=== PATIENT | female | born 1975 | race African-American/Black ===

== ENCOUNTER 2018-02-26 14:07 | Emergency (ER) | payer MEDICAID ==
[~2018-02-26] VITALS: Ht 162.6 cm; Wt 98.9 kg
[~2018-02-26 14:07] MED LIST: ALBUTEROL SULF8.5 GM INH; IBUPROFEN600 MG ORAL; NKM; PREDNISONE20 MG ORAL; PROMETHAZINE-C118 M1 ORAL; PSEUDOEPHEDRINE30 MG PO; TYLENOL EXTRA500 MG ORAL
[2018-02-26] MEDS ORDERED: NKM (14:22)
[2018-02-26] MEDS ORDERED: Sodium Chloride 500ML 500 ML IV ONE (14:36)
[2018-02-26] MEDS ORDERED: LORazepam 1mg tab ORAL ONE (14:45)
[2018-02-26 15:13] LABS: BASOPHILS % (AUTO) 0.7 % (0.0-2.0); EOSINOPHILS % (AUTO) 0.3 % (0.0-3.0); HEMATOCRIT 41.7 % (37.0-47.0); LYMPHOCYTES % (AUTO) 17.8 % (20.0-45.0); MEAN CORPUSCULAR VOLUME 81 FL (80-99); MONOCYTES % (AUTO) 6.7 % (1.0-10.0); NEUTROPHILS % (AUTO) 74.4 % (45.0-75.0); PLATELET COUNT 420 K/UL (150-450); RED BLOOD COUNT 5.18 M/UL (4.20-5.40); RED CELL DISTRIBUTION WIDTH 13.5 % (11.6-14.8); WHITE BLOOD COUNT 11.3 K/UL (4.8-10.8)
[2018-02-26 15:22] LABS: ANION GAP 12 mmol/L (5-15); BLOOD UREA NITROGEN 7 mg/dL (7-18); CALCIUM 10.7 MG/DL (8.5-10.1); CARBON DIOXIDE 24 MMOL/L (21-32); CHLORIDE 103 MMOL/L (98-107); CREATININE 0.7 MG/DL (0.55-1.30); POTASSIUM 3.4 MMOL/L (3.5-5.1); SODIUM 138 MMOL/L (136-145)
--- NOTE | 2018-02-26 15:24 | Emergency Room Report ---
History of Present Illness General Chief Complaint: Behavioral Complaint Source: Patient Present Illness HPI patient is a 42-year-old female with history of anxiety here complaining of 4 days of nausea and abdominal pain. Patient mentions that 4 days ago she found out that her cheated on her and she has been having anxiety attacks every day not being able to sleep more than 2 hours and having no appetite. He has debris bouts of vomiting and acid reflux. No diarrhea no constipation no fever or chills. Patient only admits to drinking wine after she found out about her has been cheating on her.patient denies SI, HI, changes in mood. Patient has previously been on Zoloft for anxiety management has not taken Zoloft for over one year. Denies taking any Xanax or any other benzodiazepines for her anxiety management in the past week. Denies taking any medication for nausea or for pain. Patient appears tearful and distressed as she is uncomfortable talking about the recent incident. Reports minimal lightheadedness, headache and nausea. Allergies: Coded Allergies: No Known Allergies (Unverified , 11/28/15) Patient History Past Medical History: see triage record Past Surgical History: none Now: No Immunizations: UTD Reviewed Nursing Documentation: PMH: Agreed; PSxH: Agreed Nursing Documentation-PMH Past Medical History: No History, Except For History Of Psychiatric Problem: Yes - anxiety Review of Systems All Other Systems: negative except mentioned in HPI Physical Exam Vital Signs Date Time Temp Pulse Resp B/P (MAP) Pulse Ox O2 Delivery O2 Flow Rate FiO2 02/26/18 14:15 98.2 102 19 120/71 98 Room Air Sp02 EP Interpretation: reviewed, normal General Appearance: normal inspection, well appearing, no apparent distress, alert, GCS 15 Head: normocephalic, atraumatic Eyes: bilateral eye normal inspection, bilateral eye PERRL ENT: normal ENT inspection, hearing grossly normal, normal pharynx Neck: normal inspection, full range of motion, supple Respiratory: normal inspection, chest non-tender, lungs clear, no rhonchi, no wheezing Cardiovascular #1: normal inspection, normal peripheral pulses, regular rate, rhythm, no edema, no murmur Gastrointestinal: normal inspection, non tender, soft Rectal: deferred Genitourinary: deferred Musculoskeletal: normal inspection, back normal Neurologic: normal inspection, alert, oriented x3, responsive Psychiatric: judgement/insight normal, memory normal, no suicidal/homicidal ideation, no delusions, anxious - patient appears tearful Suicide Risk Assessment: Suicidal Ideation: No Had intent to initiate attempt: No Pt's plan for suicide attempt: No Has means to complete attempt: No Skin: normal inspection, normal color, no rash Lymphatic: normal inspection, no adenopathy, axilla node tender (R) Medical Decision Making PA Attestation all diagnostic to treatment plans were reviewed and discussed with my supervising physician Dr. Brothers Diagnostic Impression: Primary Impression: Anxiety with limited-symptom attacks Additional Impression: Nausea & vomiting ER Course patient is a 42-year-old female with history of anxiety here complaining of 4 days of nausea and abdominal pain. Patient mentions that 4 days ago she found out that her cheated on her and she has been having anxiety attacks every day not being able to sleep more than 2 hours and having no appetite. He has debris bouts of vomiting and acid reflux. No diarrhea no constipation no fever or chills. Patient only admits to drinking wine after she found out about her has been cheating on her.patient denies SI, HI, changes in mood. Patient has previously been on Zoloft for anxiety management has not taken Zoloft for over one year. Denies taking any Xanax or any other benzodiazepines for her anxiety management in the past week. Denies taking any medication for nausea or for pain. Patient appears tearful and distressed as she is uncomfortable talking about the recent incident. Reports minimal lightheadedness, headache and nausea. Ddx considered but are not limited to Anxiety attack, heart attack,alcohol ingestion Vital signs: are WNL, pt. is afebrile H&PE are most consistent with anxiety attack ORDERS: Ativan 1 mg, IV access, CBC, CMP, UA, urine test, urine drug screen, blood alcohol level, xanax 0.5mg prn #5 avoid alcohol when taking xanax , zofran 4mg, omeprazole 20mg ED INTERVENTIONS: IV fluids and Ativan 1 g DISCHARGE: At this time pt. is stable for d/c to home. Will provide printed patient care instructions, and any necessary prescriptions. Care plan and follow up instructions have been discussed with the patient prior to discharge. urine drug screen was positive for marijuana patient is advised not to smoke any marijuana especially when an anxious and taking Xanax potassium 3.4, drug screen positive for marijuana EKG Diagnostic Results EP Interpretation: NSR, possible septal infarct Rate: normal Rhythm: NSR ST Segments: no acute changes ASA given to the pt in ED: Lisette BOATENG Scribe Text NSR, possible septal infarct Last Vital Signs Date Time Temp Pulse Resp B/P (MAP) Pulse Ox O2 Delivery O2 Flow Rate FiO2 02/26/18 14:32 98 19 Room Air 02/26/18 14:15 98.2 120/71 98 Disposition: HOME, SELF-CARE Condition: Stable Scripts Alprazolam* (XANAX*) 0.5 Mg Tablet 0.5 MG ORAL DAILY for 5 Days, #5 TAB Prov: Beto Solitario 02/26/18 Ondansetron* (ZOFRAN*) 4 Mg Tablet 4 MG ORAL Q6H PRN for Nausea & Vomiting, #20 TAB Prov: Beto Solitario 02/26/18 Omeprazole (OMEPRAZOLE) 20 Mg Capsule.dr 20 MG ORAL DAILY, #30 CAP Prov: Beto Solitario 02/26/18 Patient Instructions: Generalized Anxiety Disorder, Self-Destructive Behavior Additional Instructions: mental health hotline number provided, follow-up with primary care physician and also psychiatrist daily management of anxiety. If Thoughts of hurting herself has return to the ER or call mental health hotline number. Beto Solitario Feb 26, 2018 15:24
[2018-02-26 15:27] LABS: ALANINE AMINOTRANSFERASE 18 U/L (12-78); ALBUMIN 4.2 G/DL (3.4-5.0); ALKALINE PHOSPHATASE 91 U/L (46-116); ASPARTATE AMINO TRANSFERASE 23 U/L (15-37); BILIRUBIN,TOTAL 0.8 MG/DL (0.2-1.0)
[2018-02-26] MEDS ORDERED: ZOFRAN ODT8 MG ORAL (16:18)
[2018-02-26] MEDS ORDERED: OMEPRAZOLE20 M2 ORAL (16:18)
[2018-02-26] MEDS ORDERED: ZOFRAN4 M3 ORAL (16:48)
[2018-02-26] MEDS ORDERED: XANAX0.5 MG ORAL (16:57)
[2018-02-26 17:10] VITALS: BP 119/66
== END 2018-02-26 17:10 | disposition home or self-care (01) ==
LOC: EMR 14:34
DX: F41.9 Anxiety disorder, unspecified (principal); R11.2 Nausea with vomiting, unspecified
CPT/HCPCS: 36415; 80053; 80307; 80329; 81025; 85025; 93005; 96374; 99284; J2405

== ENCOUNTER 2019-06-12 10:37 | Emergency (ER) | payer MEDICAID ==
[~2019-06-12] VITALS: Ht 165.1 cm; Wt 77.1 kg
[~2019-06-12 10:37] MED LIST changes: +OMEPRAZOLE20 M2 ORAL; +XANAX0.5 MG ORAL; +ZOFRAN ODT8 MG ORAL; +ZOFRAN4 M3 ORAL
[2019-06-12 10:55] VITALS: BP 120/72
--- NOTE | 2019-06-12 10:55 | NUR ---
ED Nurse Note: PT walked in to ED for C/O heartburn since last night. PT also reports having intermittent abdomina pain especially when she eats and drinks. denies any N/V/D
--- NOTE | 2019-06-12 11:24 | Emergency Room Report ---
History of Present Illness General Chief Complaint: Abdominal Pain Source: Patient Present Illness HPI 44-year-old female presents with epigastric abdominal pain. Present for the past 48 hours. Describes nausea but no vomiting. Pain intermittent about 8 out of 10 worse with eating. No fevers no diarrhea no urinary complaints. Patient took omeprazole last night with some relief. Allergies: Coded Allergies: No Known Allergies (Unverified , 11/28/15) Patient History Reviewed Nursing Documentation: PMH: Agreed; PSxH: Agreed Nursing Documentation-PMH Past Medical History: No Stated History Review of Systems All Other Systems: negative except mentioned in HPI Physical Exam Vital Signs Date Time Temp Pulse Resp B/P (MAP) Pulse Ox O2 Delivery O2 Flow Rate FiO2 06/12/19 10:50 98.4 96 19 114/78 (90) 96 Room Air Sp02 EP Interpretation: reviewed, normal General Appearance: well appearing, no apparent distress Head: normocephalic, atraumatic Eyes: bilateral eye PERRL, bilateral eye EOMI ENT: hearing grossly normal, moist mucus membranes Neck: full range of motion, supple Respiratory: lungs clear, normal breath sounds, no rhonchi, no respiratory distress, no retraction, no wheezing Cardiovascular #1: normal peripheral pulses, regular rate, rhythm, no murmur Gastrointestinal: soft, non-distended, no guarding, tenderness - Epigastric and mild right upper quadrant tenderness Neurologic: alert, oriented x3, no focal defects Skin: normal color, warm/dry Medical Decision Making Diagnostic Impression: Primary Impression: Epigastric abdominal pain ER Course Patient presented for epigastric abdominal pain. Symptoms present for the past 2 days. No active vomiting. Abdomen mildly tender but otherwise nondistended. Differential included gastritis, acid reflux, pancreatitis, biliary colic to name a few. On exam vital signs stable. Laboratory studies were unremarkable. Urinalysis normal. negative. Do suspect gastritis versus GERD at this time. Will start patient on antacid. Patient does have follow-up with her primary care doctor this week. Stable for discharge CT/MRI/US Diagnostic Results CT/MRI/US Diagnostic Results : Impression Ultrasound abdomen No acute disease Last Vital Signs Date Time Temp Pulse Resp B/P (MAP) Pulse Ox O2 Delivery O2 Flow Rate FiO2 06/12/19 10:55 98.4 92 19 120/72 97 Room Air Disposition: HOME, SELF-CARE Condition: Stable Scripts Ondansetron* (ZOFRAN*) 4 Mg Tablet 4 MG ORAL Q6H PRN for Nausea & Vomiting for 7 Days, #20 TAB Prov: Rocky Jaquez M.D. 06/12/19 Famotidine* (Pepcid 20mg tablet*) 20 Mg Tablet 20 MG ORAL TWICE A DAY for 7 Days, #20 TAB 0 Refills Prov: Rocky Jaquez M.D. 06/12/19 Additional Instructions: Patient is instructed to follow-up with her primary care doctor, primary care clinic or formerly [facility] in 1 to 2 days. Patient instructed to return for any worsening symptoms or concerns. Please note that the documentation in this note was used with [employer] dictation technology. Pleae be advised that this may lead to erroneous text due to misinterpretation by the dictation software Rocky Jaquez M.D. Jun 12, 2019 11:24
[2019-06-12] MEDS ORDERED: Lidocaine 2% Visc 15ml soln ORAL ONE (11:30)
[2019-06-12] MEDS ORDERED: Mylanta II UD 30ml ORAL ONE (11:30)
--- NOTE | 2019-06-12 11:36 | NUR ---
ED Nurse Note: edenilson wraped right ankle
--- NOTE | 2019-06-12 11:36 | NUR ---
Sharon valadez in EDM - 06/12/19 at 1136 by MAUDE ED Nurse Note: edenilson wraped right ankle
--- NOTE | 2019-06-12 11:36 | NUR ---
ED Nurse Note: Blood and urine sent down to lab. Ultrasound being done at [facility].
[2019-06-12 12:02] LABS: APPEARANCE,URINE CLEAR; BILIRUBIN, URINE NEGATIVE (NEGATIVE); COLOR,URINE PALE YELLOW; GLUCOSE, URINE (UA) NEGATIVE (NEGATIVE); KETONES,URINE NEGATIVE (NEGATIVE); LEUKOCYTE ESTERASE ,URINE NEGATIVE (NEGATIVE); NITRITE,URINE NEGATIVE (NEGATIVE); PH,URINE 7 (4.5-8.0); PROTEIN,URINE NEGATIVE (NEGATIVE); UROBILINOGEN,URINE NORMAL MG/DL (0.0-1.0)
[2019-06-12 12:07] LABS: BASOPHILS % (AUTO) 0.5 % (0.0-2.0); EOSINOPHILS % (AUTO) 0.9 % (0.0-3.0); HEMATOCRIT 37.3 % (37.0-47.0); HEMOGLOBIN 11.8 G/DL (12.0-16.0); LYMPHOCYTES % (AUTO) 17.1 % (20.0-45.0); MEAN CORPUSCULAR VOLUME 76 FL (80-99); MONOCYTES % (AUTO) 5.5 % (1.0-10.0); PLATELET COUNT 410 K/UL (150-450); RED CELL DISTRIBUTION WIDTH 15.8 % (11.6-14.8); WHITE BLOOD COUNT 14.1 K/UL (4.8-10.8)
[2019-06-12 12:28] LABS: ANION GAP 10 mmol/L (5-15); BLOOD UREA NITROGEN 10 mg/dL (7-18); CALCIUM 10.3 MG/DL (8.5-10.1); CARBON DIOXIDE 27 MMOL/L (21-32); CHLORIDE 103 MMOL/L (98-107); CREATININE 0.6 MG/DL (0.55-1.30); POTASSIUM 3.9 MMOL/L (3.5-5.1); SODIUM 140 MMOL/L (136-145)
[2019-06-12 12:31] LABS: ALANINE AMINOTRANSFERASE 21 U/L (12-78); ALBUMIN 3.8 G/DL (3.4-5.0); ALBUMIN/GLOBULIN RATIO 0.9 (1.0-2.7); ALKALINE PHOSPHATASE 84 U/L (46-116); ASPARTATE AMINO TRANSFERASE 13 U/L (15-37); BILIRUBIN,TOTAL 0.5 MG/DL (0.2-1.0)
--- NOTE | 2019-06-12 12:50 | Diagnostic Imaging Report ---
Indication: Abdominal pain, right upper quadrant pain, nausea, vomiting Technique: Hays-scale and duplex images of the upper abdomen were obtained Comparison: none Findings: Gallbladder is unremarkable, without stones, wall thickening, nor pericholecystic fluid. Sonographic Gonzalez's sign is negative. Common bile duct measures for mm in diameter. No intrahepatic biliary ductal dilatation. Liver demonstrates normal echogenicity, no focal abnormality. Portal vein and hepatic veins are patent. Pancreas is unremarkable. Spleen is unremarkable. Left kidney measures 12 cm in length. Right kidney measures 10 cm length. Both kidneys demonstrate normal echogenicity. There is no hydronephrosis. No focal abnormality . Non-aneurysmal abdominal aorta . Impression: Negative
[2019-06-12] MEDS ORDERED: FAMOTIDINE20 MG ORAL (13:02)
[2019-06-12] MEDS ORDERED: ZOFRAN4 M3 ORAL (13:02)
[2019-06-12 13:11] VITALS: BP 128/70
--- NOTE | 2019-06-12 13:11 | NUR ---
ER DISCHARGE NOTE: Patient is cleared to be discharged per ERMD, pt is aox4, on room air, with stable vital signs. pt was given dc and prescription instructions, pt was able to verbalize understanding, pt id band removed without complications. pt is able to ambulate with steady gait. pt took all belongings.
== END 2019-06-12 13:11 | disposition home or self-care (01) ==
LOC: EMR 13:08
DX: R10.13 Epigastric pain (principal)
CPT/HCPCS: 36415; 76700; 80053; 81003; 81025; 83690; 85025; Z7502; 99284

== ENCOUNTER 2020-01-20 16:46 | Emergency (ER) | payer MEDICAID ==
[~2020-01-20] VITALS: Ht 165.1 cm; Wt 99.8 kg
[~2020-01-20 16:46] MED LIST changes: +FAMOTIDINE20 MG ORAL
--- NOTE | 2020-01-20 17:09 | NUR ---
ED Nurse Note: Pt walked into ED for R ear pain 5/10 for 1 week. No ear drainage. Pt is alert and orientedx4, ambulatory. Pt has been seen by [facility].
[2020-01-20 17:11] VITALS: BP 117/82
[2020-01-20] MEDS ORDERED: Ketorolac 30mg Inj IM ONE (17:45)
--- NOTE | 2020-01-20 17:55 | Emergency Room Report ---
History of Present Illness General Chief Complaint: Earache Source: Patient Present Illness HPI 44 YO Female presents to the ED c/o 02/08 right ear pain that has gotten worse over the course of the week. Pt. reports that it is now causing her a headache that did not have a sudden onset. Pt. reports being uncomfortable to sleep on that side, and she has spasm of the right neck muscle that has resulted. She re ports temporary relief of her neck pain with massage. Pt. denies fevers or chills. She reports taking Excedrin which only helped temporarily and was alleviating mainly her KING. Pt. denies trauma to the Ear. She denies external ear tenderness. Pt. reports keeping the ear covered with her hand helps to alleviate her ear pain slightly. She denies sore throat. She denies sensitivity to the light. She denies d/c from the ear. She recalls that the few days prior to onset she was having issues with her allergies that did resolve. She denies loss of hearing, decreased hearing, or ringing of the ears. She denies visual symptoms. Allergies: Coded Allergies: No Known Allergies (Unverified , 11/28/15) COVID-19 Screening Contact w/high risk pt: No Experienced COVID-19 symptoms?: No COVID-19 Testing performed RADIOLOGIST CHIEF OF BREAST IMAGING: No Patient History Past Medical History: see triage record Past Surgical History: none Pertinent Family History: none Last Menstrual Period: 01/14/20 Now: No Reviewed Nursing Documentation: PMH: Agreed; PSxH: Agreed Nursing Documentation-PMH Past Medical History: No History, Except For Review of Systems All Other Systems: negative except mentioned in HPI Physical Exam Vital Signs Date Time Temp Pulse Resp B/P (MAP) Pulse Ox O2 Delivery O2 Flow Rate FiO2 01/20/20 16:55 98.1 90 18 116/79 (91) 96 Room Air Sp02 EP Interpretation: reviewed, normal General Appearance: no apparent distress, alert, GCS 15, non-toxic Head: normocephalic, atraumatic Eyes: bilateral eye normal inspection, bilateral eye PERRL, bilateral eye other - no photophobia ENT: hearing grossly normal, normal pharynx, normal voice, uvula midline, moist mucus membranes, other - The right TM is bulging with slight erythema, the canal is moderately erythematous with some scratches on the posterior aspect. The canal is without discharge/exudate, or swelling. NO external ear tenderness, no pain over the mastiod process. No palpable preauricular LAD. Neck: full range of motion, no meningismus, no bony tend, tender lateral - Right lateral TTP to the muscle. no midline ttp. FROM of the neck. Respiratory: chest non-tender, lungs clear, normal breath sounds, speaking full sentences Cardiovascular #1: regular rate, rhythm, no edema Musculoskeletal: normal range of motion, gait/station normal, non-tender Neurologic: alert, motor strength/tone normal, oriented x3, sensory intact, responsive, speech normal, grossly normal, no Babinski Psychiatric: judgement/insight normal Skin: no rash, normal color Lymphatic: no adenopathy Medical Decision Making PA Attestation Dr. Villasenor Is my supervising Physician whom patient management has been discussed with. Diagnostic Impression: Primary Impression: Otitis media Qualified Codes: H65.191 - Other acute nonsuppurative otitis media, right ear Additional Impression: Neck muscle spasm ER Course 44 YO Female presents to the ED c/o 02/08 right ear pain that has gotten worse over the course of the week. Pt. reports that it is now causing her a headache that did not have a sudden onset. Pt. reports being uncomfortable to sleep on that side, and she has spasm of the right neck muscle that has resulted. She reports temporary relief of her neck pain with massage. Pt. denies fevers or chills. She reports taking Excedrin which only helped temporarily and was allev iating mainly her KING. Pt. denies trauma to the Ear. She denies external ear tenderness. Pt. reports keeping the ear covered with her hand helps to alleviate her ear pain slightly. She denies sore throat. She denies sensitivity to the light. She denies d/c from the ear. She recalls that the few days prior to onset she was having issues with her allergies that did resolve. She denies loss of hearing, decreased hearing, or ringing of the ears. She denies visual symptoms. Ddx considered but are not limited to OM, OE, mastoiditis, TM perforation, FB Vital signs: are WNL, pt. is afebrile. H&PE are most consistent with otitis media of the right ear canal. Suspect q-tip use or other fb in the ear canal as it is erythematous and appears to have some scratches on the posterior aspect. No discharge or external ear tenderness. NO evidence of mastoiditis. Pt. localizes ttp to the right trapezius area. She does not demonstrate focal neurological deficits. ORDERS: none required at this time, the diagnosis is clinical ED INTERVENTIONS: -Toradol IM DISCHARGE: At this time pt. is stable for d/c to home. With PO ABX. Will provide printed patient care instructions, and any necessary prescriptions. Care plan and follow up instructions have been discussed with the patient prior to discharge. Last Vital Signs Date Time Temp Pulse Resp B/P (MAP) Pulse Ox O2 Delivery O2 Flow Rate FiO2 01/20/20 17:11 98.1 86 16 117/82 98 Room Air Disposition: HOME, SELF-CARE Condition: Stable Scripts Ibuprofen* (MOTRIN*) 400 Mg Tablet 400 MG ORAL THREE TIMES A DAY, #30 TAB 0 Refills Prov: Daniela Mao 01/20/20 Methocarbamol* (ROBAXIN-750*) 750 Mg Tablet 750 MG PO QID for 7 Days, #28 TAB 0 Refills Prov: Daniela Mao 01/20/20 Amoxicillin/Potassium Clav 875-125* (AUGMENTIN 875-125 TABLET*) 1 Each Tablet 1 TAB ORAL TWICE A DAY for 10 Days, #20 TAB Prov: Daniela Mao 01/20/20 Referrals: NON PHYSICIAN (PCP) [facility] Patient Instructions: Otitis Media, Adult, [id number], Earache Additional Instructions: Take medications as directed. Do not drink alcohol, drive, or operate heavy machinery while taking Robaxin as this may cause drowsiness. Follow up with a Primary Care Provider in 3-5 days, even if your symptoms h ave resolved. --Please review list of primary care clinics, if you do not already have a primary care provider Return sooner to ED if new symptoms occur, or current symptoms become worse. - Please note that this Emergency Department Report was dictated using [employer] technology software, occasionally this can lead to erroneous entry secondary to interpretation by the dictation equipment. Daniela Mao Jan 20, 2020 17:55
[2020-01-20] MEDS ORDERED: ROBAXIN-750750 MG PO (18:00)
[2020-01-20] MEDS ORDERED: AUGMENTIN 875-1 EAC1 ORAL (18:00)
[2020-01-20] MEDS ORDERED: IBUPROFEN400 MG ORAL (18:00)
--- NOTE | 2020-01-20 18:07 | NUR ---
ER DISCHARGE NOTE: Patient is cleared to be discharged per ERMD, pt is aox4, on room air, with stable vital signs. pt was given dc and prescription instructions, pt was able to verbalize understanding, pt id band removed. pt is able to ambulate with steady gait. pt took all belongings.
[2020-01-20 18:12] VITALS: BP 122/86
== END 2020-01-20 18:13 | disposition home or self-care (01) ==
LOC: EMR 17:18
DX: H65.191 Other acute nonsuppurative otitis media, right ear (principal); M62.838 Other muscle spasm; R51 Headache
CPT/HCPCS: 96372; J1885; Z7502; 99283